=== PATIENT | female | born 1955 | race Caucasian/White ===

== ENCOUNTER 2022-05-05 11:16 | Emergency (ER) | payer OTHER ==
[~2022-05-05] VITALS: Ht 170.2 cm; Wt 72.6 kg
[2022-05-05] MEDS ORDERED: CHILDREN'S ASPI81 MG PO (12:12)
[2022-05-05] MEDS ORDERED: PRAVASTATIN SOD10 MG PO (12:12)
[2022-05-05] MEDS ORDERED: KETO10TA2 PO (16:14)
== END 2022-05-05 17:37 | disposition home or self-care (01) ==
LOC: ER 11:16
DX: S40.011A Contusion of right shoulder, initial encounter (principal); S50.01XA Contusion of right elbow, initial encounter; W18.30XA Fall on same level, unspecified, initial encounter; Y93.89 Activity, other specified; Y92.488 Other paved roadways as the place of occurrence of the external cause; Y99.9 Unspecified external cause status; Z88.8 Allergy status to other drugs, medicaments and biological substances